=== PATIENT | female | born 1990 | race Caucasian/White ===

== ENCOUNTER → 2020-04-01 11:16 | Outpatient (CLI) | payer BC, SELFPAY ==
[2020-04-01 11:30] LABS: Absolute Lymphocyte Count 1.26 X10^3/uL (0.83-4.51); Absolute Neutrophil Count 5.3 X10^3/uL (2.0-7.7); Basophil# 0.02 X10^3/uL; Basophil% 0.3 % (0-1); Eosinophil# 0.12 X10^3/uL; Eosinophils% 1.7 % (0-5); Hematocrit 41.1 % (37-47); Hemoglobin 13.2 g/dL (12.0-15.0); Lymphocyte # 1.26 X10^3/ul (4.0); Lymphocyte % 17.8 % (19-41); Mean Corp Hgb Conc 32.1 g/dL (32-36); Mean Corpuscular Hgb 27.7 pg (27.0-32.0); Mean Corpuscular Volume 86.3 fL (81-99); Mean Platelet Vol. 10.4 fl (6.2-12.0); Monocyte# 0.39 X10^3/uL; Monocyte% 5.5 % (0-10); NRBC Flagged by Analyzer 0 % (0-5); Neutrophil # 5.25 X10^3/uL (2.7-7.7); Neutrophil % 74.4 % (47-70); Platelet Count 179 K/mm3 (150-450); RBC Distribution Width CV 13.3 % (11.6-14.6); RBC Distribution Width SD 41.5 fl (35.1-43.9); Red Blood Count 4.76 M/mm3 (4.2-5.4); White Blood Count 7.1 K/mm3 (4.4-11.0)
[2020-04-01 11:57] LABS: Glucose Challenge Gest 1H 50g 105 mg/dL (70-140)
[2020-04-01 12:42] LABS: HIV - WCH Non-Reactive (Nonreactive); Hepatitis B Surface Antigen Non-Reactive (Nonreactive); Hepatitis C Antibody Non-Reactive (Nonreactive); Rubella IgG 197.4 IU/mL
[2020-04-01 13:35] LABS: Amphetamine Urine VISTA NEGATIVE (<1000 ng/mL); Barbiturate Urine VISTA NEGATIVE (< 200 ng/mL); Benzodiazepine Urine VISTA NEGATIVE (< 200 ng/mL); Cocaine Urine VISTA NEGATIVE (< 300 ng/mL); Ecstacy Urine VISTA NEGATIVE (< 500 ng/mL); Methadone Urine VISTA NEGATIVE (< 300 ng/mL); PCP Urine VISTA NEGATIVE (< 25 ng/mL); THC Urine VISTA NEGATIVE (< 50 ng/mL); Vista UDS pH Range 7
[2020-04-02 02:04] LABS: Rapid Plasmin Reagin (RPR) NONREACTIVE (NONREACTIVE)
[2020-04-02 20:07] LABS: Chlamydia By Nucleic Acid AMP Negative (Negative)
[2020-04-02 20:44] LABS: Gonococcus By Nucleic Acid AMP Negative (Negative)
[2020-04-03 16:32] LABS: HPV Reflexed? NOT INDICATED
== END ==
PROVIDERS: Referring Provider Obstetrics & Gynecology; Visit Provider Obstetrics & Gynecology
DX: O99.210 Obesity complicating pregnancy, unspecified trimester (principal); E66.9 Obesity, unspecified; Z3A.00 Weeks of gestation of pregnancy not specified; Z12.4 Encounter for screening for malignant neoplasm of cervix
CPT/HCPCS: 36415; 80307; 82950; 85025; 86592; 86703; 86762; 86803; 86850; 86900; 86901; 87086; 87340; 87491; 87591; 88175; G0145

== ENCOUNTER → 2020-05-06 14:53 | Outpatient (CLI) | payer BC, SELFPAY ==
[2020-05-06 14:48] VITALS: BMI 31.8
== END ==
PROVIDERS: Referring Provider Obstetrics & Gynecology; Visit Provider Obstetrics & Gynecology
DX: O28.5 Abnormal chromosomal and genetic finding on antenatal screening of mother (principal); Z3A.00 Weeks of gestation of pregnancy not specified

== ENCOUNTER → 2020-07-28 15:06 | Outpatient (CLI) | payer BC, SELFPAY ==
[2020-06-30 09:57] VITALS: BMI 34.0
[2020-07-28 15:39] LABS: Absolute Lymphocyte Count 1.25 X10^3/uL (0.83-4.51); Absolute Neutrophil Count 8.2 X10^3/uL (2.0-7.7); Basophil# 0.03 X10^3/uL; Basophil% 0.3 % (0-1); Eosinophil# 0.07 X10^3/uL; Eosinophils% 0.7 % (0-5); Hematocrit 37.2 % (37-47); Hemoglobin 12.1 g/dL (12.0-15.0); Lymphocyte # 1.25 X10^3/ul (4.0); Lymphocyte % 12.5 % (19-41); Mean Corp Hgb Conc 32.5 g/dL (32-36); Mean Corpuscular Hgb 27.4 pg (27.0-32.0); Mean Corpuscular Volume 84.4 fL (81-99); Mean Platelet Vol. 10.2 fl (6.2-12.0); Monocyte# 0.38 X10^3/uL; Monocyte% 3.8 % (0-10); NRBC Flagged by Analyzer 0 % (0-5); Neutrophil # 8.24 X10^3/uL (2.7-7.7); Neutrophil % 82.3 % (47-70); Platelet Count 149 K/mm3 (150-450); RBC Distribution Width CV 14.2 % (11.6-14.6); Red Blood Count 4.41 M/mm3 (4.2-5.4)
[2020-07-28 15:50] LABS: Glucose Challenge Gest 1H 50g 129 mg/dL (70-140)
== END ==
PROVIDERS: Referring Provider Obstetrics & Gynecology; Visit Provider Obstetrics & Gynecology
DX: O09.90 Supervision of high risk pregnancy, unspecified, unspecified trimester (principal); Z13.1 Encounter for screening for diabetes mellitus; Z3A.00 Weeks of gestation of pregnancy not specified
CPT/HCPCS: 36415; 82950; 85025

== ENCOUNTER → 2020-10-12 | Outpatient (CLI) | payer BC, SELFPAY ==
[2020-10-12 16:12] VITALS: BMI 38.9
== END | disposition home or self-care (01) ==
PROVIDERS: Referring Provider Obstetrics & Gynecology; Visit Provider Obstetrics & Gynecology
DX: O09.90 Supervision of high risk pregnancy, unspecified, unspecified trimester (principal); Z3A.00 Weeks of gestation of pregnancy not specified
CPT/HCPCS: 87081

== ENCOUNTER → 2020-10-14 16:30 | Outpatient (CLI) | payer BC, SELFPAY ==
[2020-10-02 16:01] VITALS: BMI 38.3
[2020-10-12 16:12] VITALS: BMI 38.9
--- NOTE | 2020-10-14 16:32 | US_ITS ---
STUDY: SECOND AND THIRD TRIMESTER OBSTETRICAL ULTRASOUND - LIMITED REASON FOR EXAM: Female, 30 years old growth LMP: 02/02/2020 PRIOR ULTRASOUND: None. TECHNIQUE: Transabdominal TECHNICAL QUALITY: Adequate. FINDINGS: There is a single intrauterine fetus. The fetus is in a cephalic presentation. There is demonstrated cardiac activity with a heart rate of 150 bpm. There is a normal amniotic fluid volume. The largest amniotic fluid pocket measures 4.7 cm. The amniotic fluid index (JASKARAN) is 16.2 cm. The placenta is posterior in location and is not low lying. There are Grade 1 placental changes. The cervix measures cm in length. BIOMETRY: BPD: 8.7 cm: 35 weeks, 1 days HC: 32.2 cm: 36 weeks, 3 days AC: 32.2 cm: 36 weeks, 2 days FL: 7.2 cm: 37 weeks, 0 days Age by LMP: 36 weeks, 3 days. RADAMES by LMP: 11/08/2020. age by current US: 36 weeks, 2 days. RADAMES by current US: 11/09/2020. Estimated weight: 2900 grams, +/- 423 grams, 49 percentile. Gender: US/OB Limited With Biometrics IMPRESSION: Living intrauterine of 36 weeks 2 days as described above. Electronically Signed: Yuniel Cruz MD at 9:14 EDT Tel , Service support ,
== END ==
PROVIDERS: Referring Provider Obstetrics & Gynecology; Visit Provider Obstetrics & Gynecology
DX: O09.90 Supervision of high risk pregnancy, unspecified, unspecified trimester (principal); Z3A.00 Weeks of gestation of pregnancy not specified
CPT/HCPCS: 76816

== ENCOUNTER → 2020-10-26 16:06 | Outpatient (CLI) | payer BC, SELFPAY ==
[2020-10-02 16:01] VITALS: BMI 38.3
[2020-10-19 16:27] VITALS: BMI 39.3
== END ==
PROVIDERS: Visit Provider Obstetrics & Gynecology
DX: Z34.90 Encounter for supervision of normal pregnancy, unspecified, unspecified trimester (principal)
CPT/HCPCS: 87635; C9803; U0002

== ENCOUNTER 2020-11-02 19:00 | Inpatient (IN) | payer BC, SELFPAY ==
[2020-10-26 16:07] VITALS: BMI 39.2
[2020-11-02 19:44] VITALS: BMI 40.0
[2020-11-02 19:49] VITALS: TEMP 36.6
[2020-11-02 19:50] VITALS: PULSE 103; O2SAT 95
[2020-11-02 19:54] VITALS: BP 113/70; PULSE 100
[2020-11-02] MEDS: 0.9% Saline Lock 10 ML Syringe IV (20:00)
[2020-11-02 20:18] LABS: Absolute Lymphocyte Count 1.16 X10^3/uL (0.83-4.51); Absolute Neutrophil Count 6.9 X10^3/uL (2.0-7.7); Basophil# 0.01 X10^3/uL; Basophil% 0.1 % (0-1); Eosinophil# 0.07 X10^3/uL; Eosinophils% 0.8 % (0-5); Hematocrit 34.8 % (37-47); Hemoglobin 10.7 g/dL (12.0-15.0); Lymphocyte # 1.16 X10^3/ul (0.83-4.51); Lymphocyte % 13.2 % (19-41); Mean Corp Hgb Conc 30.7 g/dL (32-36); Mean Corpuscular Hgb 24.8 pg (27.0-32.0); Mean Corpuscular Volume 80.6 fL (81-99); Monocyte# 0.58 X10^3/uL; Monocyte% 6.6 % (0-10); NRBC Flagged by Analyzer 0 % (0-5); Neutrophil % 78.8 % (47-70); Platelet Count 166 K/mm3 (150-450); RBC Distribution Width CV 15.6 % (11.6-14.6); RBC Distribution Width SD 45.2 fl (35.1-43.9); Red Blood Count 4.32 M/mm3 (4.2-5.4); White Blood Count 8.8 K/mm3 (4.4-11.0)
--- NOTE | 2020-11-02 20:50 | PCM.HP.OB ---
HPI - General General Date of Admission: 11/02/20 HPI Narrative BERNABE DEMARCO, is a 30 F at 39 weeks who presents for induction of labor for complex cardiac anomalies [facility] Medical History (Updated 11/02/20 @ 20:[address] 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 History 3 Elective abortions Hx Para 1 Spontaneous abortions Hx # Term Pregnancies Ectopic pregnancies Hx # Pregnancies Multiple births # of living children 1 NST FHR Rate Baby A Baseline: declines heart tones ROS Eyes Eyes: Reports systems reviewed and no addt'l complaints, except as documented ENT HEENT: Reports systems reviewed and no addt'l complaints, except as documented Cardiovascular Cardiovascular: Reports systems reviewed and no addt'l complaints, except as documented Respiratory/Chest Respiratory/Chest: Reports systems reviewed and no addt'l complaints, except as documented Gastrointestinal Gastrointestinal: Reports systems reviewed and no addt'l complaints, except as documented Genitourinary Genitourinary: Reports systems reviewed and no addt'l complaints, except as documented Musculoskeletal Musculoskeletal: Reports systems reviewed and no addt'l complaints, except as documented Integumentary Integumentary: Reports systems reviewed and no addt'l complaints, except as documented Neurologic Neurologic: Reports systems reviewed and no addt'l complaints, except as documented Psychiatric Psychiatric: Reports systems reviewed and no addt'l complaints, except as documented Endocrine Endocrinology: Reports systems reviewed and no addt'l complaints, except as documented Hematologic/Lymphatic Hematologic/Lymphatic: Reports systems reviewed and no addt'l complaints, except as documented Allergic/Immunologic Allergic/Immunologic: Reports systems reviewed and no addt'l complaints, except as documented Vital Signs Vital Signs Vital Signs: 11/02/20 19:49 11/02/20 19:50 11/02/20 19:54 Temperature 97.8 F Temperature Source Temporal Pulse Rate 103 H 100 Blood Pressure 113/70 BP Systolic 113 BP Diastolic 70 Pulse Ox 95 Physical Exam Const alert, oriented x3, no apparent distress, average body habitus, healthy appearing and well nourished HEENT normocephalic and moist oral mucous membranes Head and Scalp: atraumatic Eyes PERRL and EOMs intact bilaterally Neck full ROM Resp normal respiratory effort, no retractions and no use of accessory muscles Cardio regular rate and regular rhythm GI soft to palpation, non-tender and non-distended OB / External & Speculum: external exam normal; Negative for bleeding Manual OB Exam: estimated gestational size appropriate, presentation cephalic, dilated 1, effaced 50 and station -3 Uterus Palpation: Negative for uterus tender Extremity normal to inspection and full ROM Skin no rashes or lesions noted Neuro no focal motor deficits and no sensory deficits noted Psych mental status grossly normal, affect normal, speech normal and activity/motor behavior normal Assessment & Plan Assessment/Plan (1) Encounter for induction of labor: Status: Acute Code(s): Z34.90 - Encounter for supervision of normal , unspecified, unspecified trimester Plan: IOL at 39w Patient presents IOL, plan management for with Cytotec. Pain management: Plans epidural. GBS .negative Management of any complications: Palliative care only - plan reviewed with patient and nursing Heart tones at patient request I have reviewed the [facility] and made any clinically relevant updates. Labor Preferences-PALLIATIVE CARE ONLY FOR BABY labor support person: Moose labor intervention preferences: plan epidural in labor. Goal of care is as much quality time with baby as possible. Worried about not being able to push due to emotions. Comfort care for baby after delivery pain management options preferred: likely epidural Goals after delivery: Pictures with her daughter and baby. Wants baby immediately on her. Wants hand and footprints. cut cord/dad catch: maybe cord, not deliver, patient may help deliver : yes (2) : Status: Acute Code(s): Z34.90 - Encounter for supervision of normal , unspecified, unspecified trimester Qualifiers: Weeks of gestation: 38 weeks Qualified Code(s): Z3A.38 - 38 weeks gestation of (3) Hx of maternal laceration, 4th degree, currently : Status: Acute Code(s): O09.299 - Supervision of with other poor reproductive or obstetric history, unspecified trimester Plan: Had fast labor and felt was very tense during delivery. No lasting pain or incontinence. Baby suspected to be significantly smaller. Offered PCD vs. IOL and elected for vaginal delivery (4) Supervision of high risk , antepartum: Status: Acute Code(s): O09.90 - Supervision of high risk , unspecified, unspecified trimester Plan: PRR RADAMES 11/08/20 Girl! 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 Lethal anomalies. Plan palliative care only with delivery at [facility]. Meetings held between OB, nursing, and pediatrics leadership with input from [facility] to coordinate care plan. Separate plan distributed to care team.
[2020-11-02] MEDS: miSOPROStol 25 MCG TABLET PO (21:29)
[2020-11-02 21:47] VITALS: BP 109/77; PULSE 100; TEMP 36.7; O2SAT 96; O2SAT 97
[2020-11-03] VITALS (40 sets, daily range): BP systolic 97–132; BP diastolic 53–94; PULSE 79–155; RESP 18; TEMP 36.1–36.4; O2SAT 96–98
[2020-11-03] MEDS: miSOPROStol 25 MCG TABLET 50 MCG PO (01:33)
[2020-11-03] MEDS: Oxytocin 30 units/NS 500 ml 30 UNITS/500 ML IV.SOLN IV (09:14)
[2020-11-03] MEDS: Lactated Ringers 1,000 ML 50 ML IV (09:15)
[2020-11-03] MEDS: Lactated Ringers 500 ML 999 ML IV ×2 (10:01→11:13)
[2020-11-03] MEDS: Oxytocin 30 units/NS 500 ml 30 UNITS/500 ML IV.SOLN 334 UNITS IV (13:50)
--- NOTE | 2020-11-03 14:09 | EX.PCM.OBRPT ---
Problems Associated Problem List Diagnoses (1) Encounter for induction of labor: (2) : (3) Hx of maternal laceration, 4th degree, currently : (4) Supervision of high risk , antepartum: (5) COVID-19 affecting in second trimester: (6) Heterotaxy syndrome: (7) Complex congenital heart defect: Report of Operation (OB) Information RADAMES Calculator Estimated Delivery Date Method Current WG Current Estimate 11/08/20 LMP (Certain) 39w 2d Other Estimates 11/05/20 Ultrasound #1 39w 5d Induction Maternal Presentation: Medically Indicated Induction Maternal Presentation: 30-year-old G3, P1 at 39 weeks admitted for induction of labor for complex cardiac anomaly not compatible with life. Type of Induction: Pitocin, Amniotomy and Cytotec Medical Reason for Induction: Compromise: list: (Complex cardiac anomaly not compatible with life) Findings Description of Procedure: Patient began pushing and delivered the head in the MICHAEL presentation. The head was delivered atraumatically and no nuchal cord was noted. The anterior and posterior shoulders delivered without complication followed by the rest of the and the infant was placed on the maternal abdomen. Delayed cord clamping was employed for approximately 60 seconds. Cord was clamped and cut and gentle traction was applied to the cord and the placenta delivered spontaneously immediately following it was noted to be intact with three-vessel cord. The perineum and vagina were inspected and a midline second-degree perineal laceration was noted and repaired in the standard fashion using 3-0 Vicryl rapide suture. EBL was 200 cc. Patient and infant tolerated delivery well. Procedure Performed: Spontaneous Vaginal Delivery Presentation: Positive for Vertex and MICHAEL Amniotic Membrane Rupture Type: Artificial Amniotic Fluid Description: Clear Placental Delivery Description: Spontaneous Placenta Disposition: Sent to Pathology Cord Vessel Description: 3 Vessels Cord Entanglement: None Infant Gender: Female Delayed Cord Clamping: No Drain: Patten to straight drain Esitmated Blood Loss (mL): 200 Medications Given Medications Given After Delivery: IV Pitocin Post Vaginal Delivery Episiotomy Description: None Laceration: Midline, Perineal Extension/lac and 2nd degree Complications Complications: None Multi Select Codes Urinary/Genital Urinary/Genital CPT Codes: 70682 Vaginal Delivery [facility]
[2020-11-03] MEDS: 0.9% Saline Lock 10 ML Syringe IV (17:24)
[2020-11-03] MEDS: Naproxen 250 MG Tablet 500 MG PO (17:24)
[2020-11-04 02:06] VITALS: BP 101/57; PULSE 87; RESP 16; TEMP 35.9
[2020-11-04] MEDS: Naproxen 250 MG Tablet 500 MG PO (04:06)
[2020-11-04] MEDS: Acetaminophen 500 MG Tablet 1000 MG PO (06:52)
[2020-11-04 06:55] VITALS: BP 115/76; PULSE 99; RESP 16; TEMP 37
[2020-11-04 08:03] VITALS: BP 107/66; PULSE 90; RESP 18; TEMP 36.2
--- NOTE | 2020-11-04 08:40 | PN.OBGYN_ITS ---
Subjective Subjective: Patient doing well without complaints. Tolerating PO. Ambulating and voiding without difficulty. Breast and bottle feeding well. Denies chest pain, shortness of breath, calf pain/swelling, fevers, chills, lightheadedness. Objective Data Objective Data Vital Signs: Vital Signs Temp Pulse Resp BP Pulse Ox 97.2 F L 90 18 107/66 97 11/04/20 08:03 11/04/20 08:03 11/04/20 08:03 11/04/20 08:03 11/03/20 19:57 Oxygen Delivery Method Room Air Weight: 279 lb 3.2 oz Body Mass Index (BMI) 40.0 Intake & Output: Intake and Output for Last 24 Hours 11/02/20 11/03/20 11/04/20 23:59 23:59 23:59 Intake Total 2667.29 / 2667.29 Output Total 850 / 850 Balance 1817.29 / 1817.29 Lab / Micro Data Result Diagrams: 11/02/20 20:00 Physical Exam Const alert, oriented x3, no apparent distress, average body habitus, healthy appearing and well nourished HEENT normocephalic Head and Scalp: atraumatic Eyes PERRL and EOMs intact bilaterally Neck full ROM Lymph Lymphatic: no lymphadenopathy noted Resp normal respiratory effort, no retractions and no use of accessory muscles Cardio regular rate GI soft to palpation, non-tender and non-distended Palpation: other Other Details: fundus firm Extremity normal to inspection and no clubbing, cyanosis or edema Skin no rashes or lesions noted Neuro no focal motor deficits and no sensory deficits noted Psych mental status grossly normal, affect normal and speech normal Assessment & Plan Assessment/Plan (1) (spontaneous vaginal delivery): Status: Acute Code(s): O80 - Encounter for full-term uncomplicated delivery Plan: s/p PPD # 1 1. routine post delivery care 2. breast and bottle feeding 3. rh positive 4. rubella immune 5. heterotaxy syndrome - baby doing much better than originally expected, will check O2 sats and have peds evaluate this am. If maintaining sats, will consider transport to [facility]
[2020-11-04 12:01] VITALS: BP 115/77; PULSE 87; RESP 18; TEMP 35.9
--- NOTE | 2020-11-04 13:17 | CASEMGMT ---
Addendum entered by Vernell Mejia 11/04/20 13:58: SW received a call back from Patricia Pina at [facility], she reviewed w/this SW the services and supports they offer, and they will be in touch w/the family after discharge. She also states that they can make jewelry from the ink prints of the baby if the family is interested, gave SW her fax number to fax the ink prints if the family is interested. SW spoke w/MOB again, reviewed the services and supports offered, and asked about the ink prints, if she would like SW to fax them over for jewelry to be made, she states she would. SW made copies and faxed the inkprints to Patricia, gave the originals back to parents. SW will continue to remain available for family as needed. ULISSES Andujar Original Note: Social Work Labor and Delivery Unit Referral Date/Time: 11/04/20, 8:55am Referred by: Dr. Maritza MD Intervention Date/Time: 11/04/20, 1pm Reason for Referral: Grief/Loss/Bereavement, baby w/lethal anomolies. Also PHQ-9 of 15 SW met w/MOB and FOB in room, MOB tearful, holding baby. SW spoke w/them about the situation, offered support. FOB expressed concern for MOB, as she had depression after the of their daughter who is now 3. He is also concerned about anxiety for MOB. SW asked MOB about suicidality, MOB denies. She states she is in counseling, it's online and she likes her counselor, has been working w/her for about one month. She does not have an appointment scheduled at this time, she is to call the counselor once they get home to set up the next appt. ZAIDA is not on medication at this time. She states was on meds for about one month after the of her daughter, but when the prescription ran out she did not reach out to continue the medication. She does not have a PCP at this time. They are also involved with [facility], they are on aware if there is any supports available through this agency. SW offered to call to find out, they are in agreement with this. SW asked about support, both report supportive extended families. MOB reports that their 3 year old is bouncing between 3 grandparents while they are here. We spoke about the possibility of getting back on medication, MOB seems open to this. BENNY encouraged MOB to speak w/her OVERLAY PLASTICIAN about this, she states understanding. BENNY also suggested she get established with a PCP. MOB open to SW giving her a list of PCPs in [place], SW explained will print a list off of her insurance website. BENNY printed a list of PCPs for MOB. BENNY also called [facility] informed Patricia Pina does report support groups and has bereavement services she can offer. The family would just need to call the number for palliative and ask for Patricia. This SW also left Patricia a message requesting any resources SW may be able to pass on to family today. BENNY offered to call MOB's counselor or to set up an appt, MOB declined, states will do herself. BENNY gave MOB list of PCPs and number to [facility], with Patricia's number, encouraged her to call. BENNY let FOB and MOB that SW will be here should they need anything else or any additional support. BENNY remains available for any supportive needs. ULISSES Andujar
--- NOTE | 2020-11-04 13:26 | NURSING ---
RN offering continual emotional support to patient and . pt declines wanting to see hospital pot filler.
[2020-11-04 15:33] VITALS: BP 129/86; PULSE 99; RESP 18; TEMP 36
[2020-11-04 21:16] VITALS: BP 124/86; PULSE 92; RESP 18; TEMP 36.2
[2020-11-04] MEDS: Sertraline 50 MG Tablet PO (21:18)
[2020-11-05 01:58] VITALS: BP 116/72; PULSE 88; RESP 16; TEMP 36.2
--- NOTE | 2020-11-05 08:35 | DCINST_ITS ---
Discharge Instructions Diet Discharge Diet: No restrictions Activity Discharge Activity: May Drive and May Shower May resume sexual activity in: 4-6 weeks Dressing / Incision Call your doctor if your incision/area has: Continuous Slow Oozing, Sudden Increased Bleeding, Increased Pain/ Swelling, Increased Redness and Foul Smelling Discharge Call your doctor if you observe: Fever of 101 or Higher, Inability to urinate, Inability to have a bowel movement, Using more than one pad per hour, Shortness of breath, Dizziness, Fainting spells, Swelling in the ankles, Chest pain, Incr eased palpitations (irregular heartbeat), Calf discomfort and Uncontrolled pain Discharge Plan Admission Admit Date/Time: 11/02/20 19:00 Primary Reason for Your Visit: Induction of labor Attending Provider: Glo Salas Primary Care Provider: Care Physician,Lakisha Primary Instructions Patient Instructions: After a Vaginal Additional Instructions / Restrictions: Schedule visit in 6 weeks Discharge Orders/Prescriptions Referrals / Follow Up: Care Physician,No Primary [Primary Care Provider] - Disposition Disposition (needs filled in before D/C Order can be placed): Home, self care
--- NOTE | 2020-11-05 08:42 | PCM.PN.OB ---
Subjective Subjective: Patient doing well without complaints. Tolerating PO. Ambulating and voiding without difficulty. Baby did not do well overnight. Patient reports that she is feeling well, but having a difficult time emotionally Objective Data Objective Data Vital Signs: Vital Signs Temp Pulse Resp BP Pulse Ox 97.2 F L 88 16 116/72 97 11/05/20 01:58 11/05/20 01:58 11/05/20 01:58 11/05/20 01:58 11/03/20 19:57 Oxygen Delivery Method Room Air Weight: 279 lb 3.2 oz Body Mass Index (BMI) 40.0 Intake & Output: Intake and Output for Last 24 Hours 11/03/20 11/04/20 11/05/20 23:59 23:59 23:59 Intake Total 2667.29 / 2667.29 Output Total 850 / 850 Balance 1817.29 / 1817.29 Lab / Micro Data Result Diagrams: 11/02/20 20:00 Physical Exam Const alert, oriented x3, no apparent distress, average body habitus, healthy appearing and well nourished HEENT normocephalic Head and Scalp: atraumatic Eyes PERRL and EOMs intact bilaterally Neck full ROM Lymph Lymphatic: no lymphadenopathy noted Resp normal respiratory effort, no retractions and no use of accessory muscles Cardio regular rate GI soft to palpation, non-tender and non-distended Palpation: other Other Details: fundus firm Extremity normal to inspection and no clubbing, cyanosis or edema Skin no rashes or lesions noted Neuro no focal motor deficits and no sensory deficits noted Psych mental status grossly normal, affect normal and speech normal Assessment & Plan (1) (spontaneous vaginal delivery): PLAN: s/p PPD # 2 1. routine post delivery care 2. breast feeding- support given 3. rh positive 4. rubella immune
[2020-11-05 09:28] VITALS: BP 109/69; PULSE 95; RESP 14; TEMP 36.4; O2SAT 97
--- NOTE | 2020-11-05 09:51 | NURSING ---
Patient wishes for minimum interruptions from staff. Wishes to be hotel status at this time. Landscape Crew Member and social work notified of patient's wishes. Ariana Betancourt from social work notified that patient has appropriate emotional responses to her circumstances. Is responsive to questions from staff. Spouse at her side for emotional support. Ariana is comfortable with waiting to talk to the patient after the anticipated passing of her .
--- NOTE | 2020-11-05 16:26 | NURSING ---
Infant passed at approximately 1350. Parents given emotional support. They requested to bathe the and were provided materials to do so. [employer] collected with help of this RN. Patient and spouse were tearful but appropriate. They wished to go home as soon as possible. Social work not on unit at the time. Was left a message to notify her that patient desires a phone call from social media assistant as she would like to go home. Patient walked out at discharge around 1535 accompanied by her spouse and this RN.
== END 2020-11-05 10:16 | disposition home or self-care (01) | DRG 807 ==
PROVIDERS: Admitting Provider Obstetrics & Gynecology; Visit Provider Obstetrics & Gynecology
DX: O66.3 Obstructed labor due to other abnormalities of fetus (principal); O35.8XX0 Maternal care for other (suspected) fetal abnormality and damage, not applicable or unspecified; Z37.0 Single live birth; Z3A.39 39 weeks gestation of pregnancy; Z86.16 Personal history of COVID-19; O70.1 Second degree perineal laceration during delivery
CPT/HCPCS: 59025; 59050; 85025; 86850; 86900; 86901; 99218; J7120; A4216; G0378

== ENCOUNTER → 2021-06-01 16:44 | Outpatient (CLI) | payer OTHER, SELFPAY ==
[2021-06-01 17:45] LABS: hCG Titer Quant., Serum < 1 mIU/mL (1-3)
== END ==
PROVIDERS: Visit Provider Obstetrics & Gynecology
DX: N91.2 Amenorrhea, unspecified (principal)
CPT/HCPCS: 36415; 84702

== ENCOUNTER → 2021-06-16 07:17 | Outpatient (CLI) | payer OTHER, SELFPAY ==
[2021-06-16 08:31] LABS: hCG Titer Quant., Serum 161 mIU/mL (1-3)
== END ==
PROVIDERS: Referring Provider Obstetrics & Gynecology; Visit Provider Obstetrics & Gynecology
DX: Z34.90 Encounter for supervision of normal pregnancy, unspecified, unspecified trimester (principal)
CPT/HCPCS: 36415; 84702

== ENCOUNTER → 2021-06-18 06:42 | Outpatient (CLI) | payer OTHER, SELFPAY ==
[2021-06-18 08:40] LABS: hCG Titer Quant., Serum 389 mIU/mL (1-3)
== END ==
PROVIDERS: Referring Provider Nurse Practitioner Women's Health; Visit Provider Nurse Practitioner Women's Health
DX: N91.2 Amenorrhea, unspecified (principal)
CPT/HCPCS: 36415; 84702

== ENCOUNTER 2021-07-05 16:20 | Outpatient (CLI) | payer OTHER, SELFPAY ==
--- NOTE | 2021-07-05 16:23 | US_ITS ---
STUDY: FIRST TRIMESTER OBSTETRICAL ULTRASOUND REASON FOR EXAM: Female, 30 years old positive test, size and dates LMP: Unknown. TECHNIQUE: Transvaginal TECHNICAL QUALITY: Adequate. PRIOR ULTRASOUND: None. FINDINGS: There is visualization of a single gestational sac in a normal intrauterine position. The mean sac diameter (MSD) measures 2.2 cm, indicating an estimated gestational age (EGA) of 7 weeks, 0 days. The gestational sac shape is within normal limits. There is a visualized yolk sac. The yolk sac measures 0.5 cm. The placenta is non-visualized. There is visualization of a live embryo. The crown-rump length (CRL) measures 1.02 cm, indicating an estimated gestational age (EGA) of 7 weeks, 1 days. There is demonstrated cardiac activity with a heart rate of 138 bpm. The estimated gestation age (EGA) by US is 7 weeks, 1 days. The estimated date of delivery (RADAMES) by US is 02/21/2022. The uterus measures 8.8 x 7.2 x 5.4 cm. There is no demonstrated uterine fibroid. The cervix is closed. The right ovary measures 3.2 x 2.0 x 1.0 cm. There is no right ovarian cyst. There is no visualized right adnexal mass or complex lesion. The left ovary measures 3.1 x 1.9 x 2.1 cm. There is a simple 2.0 cm cyst There is no fluid in the cul de sac. US/Transvaginal w/Preg US IMPRESSION: Single live intrauterine at 7 weeks, 1 day by current ultrasound with RADAMES of 02/21/2022. Heart rate of 130 bpm. No suspicious sonographic findings Electronically Signed: Jeremiah Graham MD at 19:28 EST , Service support ,
== END 2021-07-05 23:59 | disposition short-term general hospital (02) ==
LOC: US 16:22
PROVIDERS: Referring Provider Obstetrics & Gynecology; Visit Provider Obstetrics & Gynecology
DX: Z34.90 Encounter for supervision of normal pregnancy, unspecified, unspecified trimester (principal)
CPT/HCPCS: 76817

== ENCOUNTER 2021-07-22 17:16 | Outpatient (CLI) | payer OTHER, SELFPAY ==
[2021-07-22 17:44] LABS: Amphetamine Urine VISTA NEGATIVE (<1000 ng/mL); Barbiturate Urine VISTA NEGATIVE (< 200 ng/mL); Benzodiazepine Urine VISTA NEGATIVE (< 200 ng/mL); Cocaine Urine VISTA NEGATIVE (< 300 ng/mL); Ecstacy Urine VISTA NEGATIVE (< 500 ng/mL); Methadone Urine VISTA NEGATIVE (< 300 ng/mL); PCP Urine VISTA NEGATIVE (< 25 ng/mL); THC Urine VISTA NEGATIVE (< 50 ng/mL); Vista UDS pH Range 6
[2021-07-26 21:07] LABS: Chlamydia By Nucleic Acid AMP Negative (Negative)
[2021-07-26 21:11] LABS: Gonococcus By Nucleic Acid AMP Negative (Negative)
== END 2021-07-22 23:59 | disposition short-term general hospital (02) ==
PROVIDERS: Visit Provider Obstetrics & Gynecology
DX: O09.90 Supervision of high risk pregnancy, unspecified, unspecified trimester (principal); Z3A.00 Weeks of gestation of pregnancy not specified
CPT/HCPCS: 80307; 87086; 87088; 87491; 87591

== ENCOUNTER 2021-08-04 07:01 | Outpatient (CLI) | payer OTHER, SELFPAY ==
[2021-08-04 07:21] LABS: Absolute Lymphocyte Count 1.02 X10^3/uL (0.83-4.51); Basophil# 0.02 X10^3/uL; Basophil% 0.4 % (0-1); Eosinophil# 0.07 X10^3/uL; Eosinophils% 1.3 % (0-5); Hemoglobin 12.7 g/dL (12.0-15.0); Lymphocyte # 1.02 X10^3/ul (0.83-4.51); Lymphocyte % 19.2 % (19-41); Mean Corp Hgb Conc 32.6 g/dL (32-36); Mean Corpuscular Volume 79.9 fL (81-99); Mean Platelet Vol. 10.3 fl (6.2-12.0); Monocyte# 0.25 X10^3/uL; Monocyte% 4.7 % (0-10); NRBC Flagged by Analyzer 0 % (0-5); Neutrophil # 3.95 X10^3/uL (2.7-7.7); Neutrophil % 74.2 % (47-70); Platelet Count 169 K/mm3 (150-450); RBC Distribution Width CV 14.6 % (11.6-14.6); RBC Distribution Width SD 42.3 fl (35.1-43.9); Red Blood Count 4.88 M/mm3 (4.2-5.4); White Blood Count 5.3 K/mm3 (4.4-11.0)
[2021-08-04 07:42] LABS: Glucose Challenge Gest 1H 50g 144 mg/dL (70-140)
[2021-08-04 08:07] LABS: NATERA MAILED SPECIMEN
[2021-08-04 09:09] LABS: HIV - WCH Non-Reactive (Nonreactive); Hepatitis B Surface Antigen Non-Reactive (Nonreactive); Hepatitis C Antibody Non-Reactive (Nonreactive); Rubella IgG Reactive (Nonreactive); Syphilis Antibodies Non-reactive
== END 2021-08-04 23:59 | disposition short-term general hospital (02) ==
PROVIDERS: Referring Provider Obstetrics & Gynecology; Visit Provider Obstetrics & Gynecology
DX: O09.91 Supervision of high risk pregnancy, unspecified, first trimester (principal); O99.211 Obesity complicating pregnancy, first trimester
CPT/HCPCS: 36415; 82950; 85025; 86703; 86762; 86780; 86803; 86850; 86900; 86901; 87340

== ENCOUNTER 2021-08-31 15:45 | Outpatient (CLI) | payer OTHER, SELFPAY ==
[2021-08-31 16:23] LABS: ALB/GLOB Ratio 0.7 RATIO (0.9-2.4); AST(SGOT) 16 U/L (15-37); Alanine Aminotransfer ALT/SGPT 15 U/L (13-56); Albumin, Serum 3.2 g/dL (3.2-5.0); Alkaline Phosphatase 98 U/L (45-117); Anion Gap 5 (5-15); BUN 5 mg/dL (7-18); BUN/Creat Ratio 6.7 RATIO (10-20); Calcium,Total 9.1 mg/dL (8.5-10.1); Chloride 108 mmol/L (98-107); Creatinine, Serum 0.75 mg/dL (0.55-1.02); EST Glomerular Filtration Rate 97 mL/min (>60); Est Glom Filt Rate - Afr Amer 117 mL/min (>60); Globulin 4.3 g/dL (2.2-4.2); Glucose 88 mg/dL (74-106); Lipase 77 U/L (73-393); Potassium 3.5 mmol/L (3.5-5.1); Protein, Total 7.5 g/dL (6.4-8.2); Sodium Level 137 mmol/L (136-145)
[2021-08-31 16:27] LABS: Absolute Lymphocyte Count 1.24 X10^3/uL (0.83-4.51); Absolute Neutrophil Count 4.3 X10^3/uL (2.0-7.7); Basophil# 0.03 X10^3/uL; Basophil% 0.5 % (0-1); Eosinophil# 0.07 X10^3/uL; Eosinophils% 1.2 % (0-5); Hematocrit 41.6 % (37-47); Hemoglobin 13.6 g/dL (12.0-15.0); Lymphocyte # 1.24 X10^3/ul (0.83-4.51); Lymphocyte % 20.6 % (19-41); Mean Corp Hgb Conc 32.7 g/dL (32-36); Mean Corpuscular Volume 79.5 fL (81-99); Mean Platelet Vol. 10.7 fl (6.2-12.0); Monocyte# 0.35 X10^3/uL; Monocyte% 5.8 % (0-10); NRBC Flagged by Analyzer 0 % (0-5); Neutrophil % 71.4 % (47-70); Platelet Count 192 K/mm3 (150-450); RBC Distribution Width CV 15.1 % (11.6-14.6); RBC Distribution Width SD 43.1 fl (35.1-43.9); Red Blood Count 5.23 M/mm3 (4.2-5.4)
== END 2021-08-31 23:59 | disposition home or self-care (01) ==
LOC: PAVLAB 15:46
PROVIDERS: Referring Provider Obstetrics & Gynecology; Visit Provider Obstetrics & Gynecology
DX: O26.899 Other specified pregnancy related conditions, unspecified trimester (principal); R10.9 Unspecified abdominal pain; Z3A.00 Weeks of gestation of pregnancy not specified
CPT/HCPCS: 36415; 80053; 83690; 85025; 87086; 87088

== ENCOUNTER 2021-09-22 16:45 | Outpatient (CLI) | payer OTHER, SELFPAY | END 2021-09-22 23:59 | disposition home or self-care (01) | LOC: LABSPEC 16:46 | PROVIDERS: Referring Provider Nurse Practitioner Women's Health; Visit Provider Nurse Practitioner Women's Health | DX: Z34.92 Encounter for supervision of normal pregnancy, unspecified, second trimester (principal) | CPT/HCPCS: 87086; 87088 ==

== ENCOUNTER 2021-10-14 09:58 | Outpatient (CLI) | payer OTHER, SELFPAY ==
[2021-10-14 10:39] LABS: Glucose GTT-Gestation. Fasting 85 mg/dL (<105)
[2021-10-14 11:33] LABS: Glucose GTT-Gestational 1 Hr 136 mg/dL (<190)
[2021-10-14 12:37] LABS: Glucose GTT-Gestational 2 Hr 112 mg/dL (<165)
[2021-10-14 13:55] LABS: Glucose GTT-Gestational 3 Hr 106 L (<145)
== END 2021-10-14 23:59 | disposition home or self-care (01) ==
LOC: LAB 09:59
PROVIDERS: Referring Provider Nurse Practitioner Women's Health; Visit Provider Nurse Practitioner Women's Health
DX: Z13.1 Encounter for screening for diabetes mellitus (principal)
CPT/HCPCS: 36415; 82951; 82952

== ENCOUNTER → 2021-12-01 | Outpatient (CLI) | payer OTHER, SELFPAY ==
[2021-12-01 15:00] LABS: Absolute Lymphocyte Count 1.18 X10^3/uL (0.83-4.51); Absolute Neutrophil Count 7.6 X10^3/uL (2.0-7.7); Basophil# 0.02 X10^3/uL; Basophil% 0.2 % (0-1); Eosinophil# 0.07 X10^3/uL; Eosinophils% 0.8 % (0-5); Hemoglobin 11.5 g/dL (12.0-15.0); Lymphocyte # 1.18 X10^3/ul (0.83-4.51); Lymphocyte % 12.7 % (19-41); Mean Corp Hgb Conc 31.9 g/dL (32-36); Mean Corpuscular Hgb 26.4 pg (27.0-32.0); Mean Corpuscular Volume 82.6 fL (81-99); Mean Platelet Vol. 10.1 fl (6.2-12.0); Monocyte# 0.35 X10^3/uL; Monocyte% 3.8 % (0-10); NRBC Flagged by Analyzer 0 % (0-5); Neutrophil # 7.59 X10^3/uL (2.7-7.7); Platelet Count 151 K/mm3 (150-450); RBC Distribution Width CV 15.8 % (11.6-14.6); RBC Distribution Width SD 47.2 fl (35.1-43.9); Red Blood Count 4.36 M/mm3 (4.2-5.4); White Blood Count 9.3 K/mm3 (4.4-11.0)
[2021-12-01 15:50] LABS: Glucose Challenge Gest 1H 50g 132 mg/dL (70-140)
== END | disposition home or self-care (01) ==
LOC: PAVLAB 14:45
PROVIDERS: Referring Provider Obstetrics & Gynecology; Visit Provider Obstetrics & Gynecology
DX: O09.90 Supervision of high risk pregnancy, unspecified, unspecified trimester (principal); Z3A.00 Weeks of gestation of pregnancy not specified
CPT/HCPCS: 36415; 82950; 85025

== ENCOUNTER 2022-01-23 23:35 | Outpatient (CLI) | payer OTHER, SELFPAY ==
[2022-01-23 23:48] VITALS: BP 126/89; PULSE 88; TEMP 36.8
[2022-01-23 23:52] VITALS: BMI 41.7
--- NOTE | 2022-01-27 18:31 | OB.TRI.PN ---
Progress Notes Progress Note: Patient presents for triage evaluation secondary to decreased movement FHT: 140 Moderate variability reactive no decelerations category I tracing Kohler: no regular Contractions Assessment and plan: dec movement Reactive NST, reassuring maternal and status patient discharged to home to follow-up as scheduled. See problem list details for additional plan information. Charges/Coding Procedures Urinary/Genital 52xxx-59xxx: 06826-83 non-stress test Interp
== END 2022-01-24 00:25 | disposition home or self-care (01) ==
LOC: WPOUT 23:41 → WP 23:42
PROVIDERS: Visit Provider Obstetrics & Gynecology
DX: O36.8190 Decreased fetal movements, unspecified trimester, not applicable or unspecified (principal); Z3A.00 Weeks of gestation of pregnancy not specified
CPT/HCPCS: 59025; 59050; 99218; G0378

== ENCOUNTER → 2022-01-25 | Outpatient (CLI) | payer OTHER, SELFPAY ==
--- NOTE | 2022-01-25 12:24 | US_ITS ---
STUDY: SECOND AND THIRD TRIMESTER OBSTETRICAL ULTRASOUND - LIMITED REASON FOR EXAM: Female, 31 years old growth -- 36 weeks LMP: 05/17/2021. PRIOR ULTRASOUND: Comparison is made with prior study dated 07/05/2021. TECHNIQUE: Transabdominal TECHNICAL QUALITY: Adequate. FINDINGS: There is a single intrauterine fetus. The fetus is in a cephalic presentation. There is demonstrated cardiac activity with a heart rate of 131 bpm. There is a normal amniotic fluid volume. The largest amniotic fluid pocket measures 7.7 cm x 7.1 cm. The amniotic fluid index (JASKARAN) is 25.5 cm. The placenta is posterior in location and is not low lying. There are Grade 1 placental changes. The cervix was not measured. The patient did not fill the bladder. BIOMETRY: BPD: 9.38 cm: 38 weeks, 1 days HC: 33.9 cm: 38 weeks, 6 days AC: 35.48 cm: 39 weeks, 2 days FL: 7.11 cm: 37 weeks, 2 days Age by LMP: 36 weeks, 1 days. RADAMES by LMP: 02/21/2022. age by prior US: 36 weeks, 1 days. RADAMES by prior US: 02/21/2022. age by current US: 38 weeks, 0 days. RADAMES by current US: 02/08/2022. Estimated weight: 3540 grams, +/- 531 grams, 96.8 percentile. US/OB Limited With Biometrics IMPRESSION: Single live intrauterine gestation with a mean gestational age of 36 weeks and 1 day. The measurements obtained today fall within the normal expected range. Electronically Signed: Dontae Sanchez MD at 9:46 EDT ,
== END | disposition home or self-care (01) ==
LOC: OPUS 12:21
PROVIDERS: Visit Provider Obstetrics & Gynecology
DX: O09.299 Supervision of pregnancy with other poor reproductive or obstetric history, unspecified trimester (principal); Z3A.36 36 weeks gestation of pregnancy
CPT/HCPCS: 76816

== ENCOUNTER 2022-01-28 10:51 | Outpatient (CLI) | payer OTHER, SELFPAY | END 2022-01-28 23:59 | disposition home or self-care (01) | LOC: LABSPEC 10:52 | PROVIDERS: Referring Provider Obstetrics & Gynecology; Visit Provider Obstetrics & Gynecology | DX: Z34.93 Encounter for supervision of normal pregnancy, unspecified, third trimester (principal) | CPT/HCPCS: 87081 ==

== ENCOUNTER → 2022-02-07 | Outpatient (CLI) | payer OTHER, SELFPAY ==
[2022-02-07 10:51] LABS: Glucose GTT-Gestation. Fasting 78 mg/dL (<105)
[2022-02-07 11:58] LABS: Glucose GTT-Gestational 1 Hr 148 mg/dL (<190)
[2022-02-07 13:59] LABS: Glucose GTT-Gestational 3 Hr 111 L (<145)
[2022-02-07 14:01] LABS: Glucose GTT-Gestational 2 Hr 103 mg/dL (<165)
== END | disposition home or self-care (01) ==
LOC: LAB 09:53
PROVIDERS: Referring Provider Obstetrics & Gynecology; Visit Provider Obstetrics & Gynecology
DX: Z13.1 Encounter for screening for diabetes mellitus (principal)
CPT/HCPCS: 36415; 82951; 82952

== ENCOUNTER 2022-02-09 09:00 | Inpatient (IN) | payer OTHER, SELFPAY ==
[2022-02-09] VITALS (43 sets, daily range): BP systolic 94–194; BP diastolic 54–121; PULSE 71–102; RESP 16; TEMP 35.6–36.9; O2SAT 96–99; BMI 42.2
[2022-02-09] MEDS: Lactated Ringers 1,000 ML 50 ML IV (09:16)
[2022-02-09 10:02] LABS: Absolute Lymphocyte Count 1.07 X10^3/uL (0.83-4.51); Absolute Neutrophil Count 8.4 X10^3/uL (2.0-7.7); Basophil# 0.02 X10^3/uL; Basophil% 0.2 % (0-1); Eosinophil# 0.08 X10^3/uL; Eosinophils% 0.8 % (0-5); Hematocrit 33.8 % (37-47); Hemoglobin 10.8 g/dL (12.0-15.0); Lymphocyte # 1.07 X10^3/ul (0.83-4.51); Lymphocyte % 10.6 % (19-41); Mean Corpuscular Hgb 25.2 pg (27.0-32.0); Mean Platelet Vol. 10.3 fl (6.2-12.0); Monocyte# 0.49 X10^3/uL; Monocyte% 4.8 % (0-10); NRBC Flagged by Analyzer 0 % (0-5); Neutrophil % 83.1 % (47-70); Platelet Count 146 K/mm3 (150-450); RBC Distribution Width CV 16.5 % (11.6-14.6); RBC Distribution Width SD 46.4 fl (35.1-43.9); Red Blood Count 4.28 M/mm3 (4.2-5.4); White Blood Count 10.1 K/mm3 (4.4-11.0)
[2022-02-09] MEDS: LACTATED RINGERS 500 ML 999 ML IV (10:49)
[2022-02-09] MEDS: fentaNYL-bupivacaine (epidural) 100 ML BAG EPIDURAL ×2 (11:47→16:04)
[2022-02-09] MEDS: Oxytocin 30 units/NS 500 ml 30 UNITS/500 ML IV.SOLN IV (13:36)
--- NOTE | 2022-02-09 15:55 | HP.PCM.OB_ITS ---
HPI - General General Date of Admission: 02/09/22 HPI Narrative BERNABE DEMARCO, is a 31 F who presents IAL made change to 4 cm no vb lof good fm. Maternal Data Information RADAMES Calculator 2 Estimated Delivery Date Method Current WG Current Estimate 02/21/22 Ultrasound #1 38w 2d [facility] Medical History Asthma H/O acute pancreatitis (~2017) Home Medications prenat.vits,jordan,[id number] 1 tab PO DAILY 07/13/21 [History Last Taken 02/08/22 22:00] sertraline 50 mg tablet (Zoloft) 75 mg PO DAILY 30 days #45 tabs 12/01/21 [Rx Last Taken 02/08/22 22:00] Allergy/AdvReac Type Severity Reaction Status Date / Time No Known Allergies Allergy Verified 02/09/22 06:42 Surgical History H/O laparoscopy (~2017) History of cholecystectomy (~2017) Social History household members: family housing: house number of children: 1 current occupational status: employed 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 Date Name GA/Weeks Outcome Route Bth Weight Gen Labor Lgth Anesthesia Del Locatn Provider FOB Unknown 05/15/2017- Jett 41 live - full term 10l bs 3oz Female 4 hours none [facility] 11/03/20 Valentino (passed on 11/05) 39 live - full term Female [facility] Maritza Delivery Date: Last Updated by: Ananbelle Colbert 4th laceration Delivery Date: 11/03/20 Last Updated by: Shawna Townsend IOL for complex cardiac anomaly. Baby survived 2 days after delivery and passed on the afternoon of 11/05 Visit Details Expected Delivery Route/Plan discussed IOL by 39 due to history of 4th degree laceration Labor Preferences labor support person: labor intervention preferences: DO NOT DELIVER IN ROOM 21 pain management options preferred: [] cut cord/dad catch: [] : [] PP control planned: [] discussed possible routes of delivery and associated risks: [] special requests: [] Plans Covid status: vaccinated Flu vaccine: discussed Tdap vaccine: given Rhogam: na LARC form signed: declined movement and labor precautions reviewed. Problem list reviewed and updated with the most current plan of care details and appropriate orders placed. Relevant counseling for the gestational age provided. Continue routine care and follow up unless otherwise noted in visit notes/problem list details OB Flowsheet Initial Weight: 265 lb Date -?-?-?-?-?-?-?-?-?-?-?-?- EGA Weight BP Urine Prot -?-?-?-?-?-?-?-?-?-?-?-?- Glucose FHR FuHt Pres Dilation -?-?-?-?-?-?-?-?-?-?-?-?- Effaced St Visit Note 07/22/21 -?-?-?-?-?-?-?-?-?-?-?-?- 9w 3d 264 lb 4 oz (-12 oz) 120/86 -?-?-?-?-?-?-?-?-?-?-?-?- 170 -?-?-?-?-?-?-?-?-?-?-?-?- JV- pt had a selma ing ultrasound with the hospital at 7 weeks that was consistent with LMP 08/23/21 -?-?-?-?-?-?-?-?-?-?-?-?- 14w 0d 259 lb (-6 lb) 120/88 Negative -?-?-?-?-?-?-?-?-?-?-?-?- Negative 160 -?-?-?-?-?-?-?-?-?-?-?-?- SM- no vb radha mcnair. discussed anxiety and depression symptoms encouraged counseling and restarting zoloft. 08/31/21 -?-?-?-?-?-?-?-?-?-?-?-?- 15w 1d 253 lb (-12 lb) 128/90 Negative -?-?-?-?-?-?-?-?-?-?-?-?- Negative 150 -?-?-?-?-?-?-?-?-?-?-?-?- SM- co spotting yestereday, nause and upper abdominal pain, lower cramping and diarrhea. labs and urine culture sent to evaluate, discussed OTC meds 09/22/21 -?-?-?-?-?-?-?-?-?-?-?-?- 18w 2d 258 lb 8 oz (-6 lb 8 oz) 110/64 Negative -?-?-?-?-?-?-?-?-?-?-?-?- Negative 149 -?-?-?-?-?-?-?-?-?-?-?-?- Mh-No Vb, LOF. F eeling flutters. More anxiety. Had MFM anatomy US 09/27. Fear of heart defect like last child. Some difficulty sleeping Has Rx zoloft. Does not want to take any medication. Will call if needs other support intervention. Just feels will be better after Monday. 10/20/21 -?-?-?-?-?-?-?-?-?-?-?-?- 22w 2d 260 lb 6 oz (-4 lb 10 oz) 117/78 Negative -?-?-?-?-?-?-?-?-?-?-?-?- Negative 145 -?-?-?-?-?-?-?-?-?-?-?-?- JV- no lof, vagi nal bleeding or dec fm. Has echo next week 11/19/21 -?-?-?-?-?-?-?-?-?-?-?-?- 26w 4d 267 lb (+2 lb) 104/66 Negative -?-?-?-?-?-?-?-?-?-?-?-?- Negative 135 26 -?-?-?-?-?-?-?-?-?-?-?-?- SM- no vb lof go od fm nor egular ctx nl echo 12/01/21 -?-?-?-?-?-?--?-?-?-?-?-?- 28w 2d 270 lb 6 oz (+5 lb 6 oz) 120/86 Negative -?-?-?-?-?-?-?-?-?-?-?-?- Negative 144 30 -?-?-?-?-?-?-?-?-?-?-?-?- JV- pt wants to try to increase zoloft. 75mg rx sent to pharmacy. no lof, vaginal bleeding, or dec fm. 12/17/21 -?-?-?-?-?-?-?-?-?-?-?-?- 30w 4d 273 lb (+8 lb) 138/86 Negative -?-?-?-?-?-?-?-?-?-?-?-?- Negative 140 32 -?-?-?-?-?-?-?-?-?-?-?-?- Sm- no vb lof go od fm no regular ctx doing well mood pink. tdap today 12/31/21 -?-?-?-?-?-?-?-?-?-?-?-?- 32w 4d 278 lb 2 oz (+13 lb 2 oz) 120/88 Negative -?-?-?-?-?-?-?-?-?-?-?-?- Negative 134 33 -?-?-?-?-?-?-?-?-?-?-?-?- JV- [facility] signed, tdap today. plan 36 week growth ultrasound. 01/14/22 -?-?-?-?-?-?-?-?-?-?-?-?- 34w 4d 284 lb 4 oz (+19 lb 4 oz) 134/76 Negative -?-?-?-?-?-?-?-?-?-?-?-?- Negative 145 35 -?-?-?-?-?-?-?-?-?-?-?-?- SM- no vb lof go od fm no regular ctx. 01/28/22 -?-?-?-?-?-?-?-?-?-?-?-?- 36w 4d 291 lb 4 oz (+26 lb 4 oz) 136/80 Trace -?-?-?-?-?-?-?-?-?-?-?-?- Negative 145 37 Cephalic 1 -?-?-?-?-?-?-?-?-?-?-?-?- SM- no vb lof go od fm no regular ctx 02/04/22 -?-?-?-?-?-?-?-?-?-?-?-?- 37w 4d 291 lb 4 oz (+26 lb 4 oz) 134/82 Negative -?-?-?-?-?-?-?-?-?-?-?-?- Negative 140 Cephalic 3 -?-?-?-?-?-?-?-?-?-?-?-?- 50 -3 JV- nst re active. labor precautions discussed. GBS is negtive. 02/09/22 -?-?-?-?-?-?-?-?-?-?-?-?- 38w 2d 294 lb 6.4 oz (+29 lb 6.4 oz) 130/73 126/83 133/94 142/90 146/91 153/82 139/75 114/69 116/68 111/66 113/62 107/55 115/57 114/62 110/60 118/70 111/67 -?-?-?-?-?-?-?-?-?-?-?-?- -?-?-?-?-?-?-?-?-?-?-?--?- NST FHR Rate Baby A Baseline: 140 Variability:: Moderate Accelerations:: 15 x 15 Decelerations:: None NST Reactive:: Yes FHR Category:: Category I Uterine Activity:: q3-5 ROS Constitutional Constitutional: Reports systems reviewed and no addt'l complaints, except as documented ENT HEENT: Reports systems reviewed and no addt'l complaints, except as documented Cardiovascular Cardiovascular: Reports systems reviewed and no addt'l complaints, except as documented Respiratory/Chest Respiratory/Chest: Reports systems reviewed and no addt'l complaints, except as documented Gastrointestinal Gastrointestinal: Reports systems reviewed and no addt'l complaints, except as documented and nausea; Denies abdominal pain Genitourinary Genitourinary: Reports systems reviewed and no addt'l complaints, except as documented, contractions Details: present and frequency (regular ) and movement Details: present Musculoskeletal Musculoskeletal: Reports systems reviewed and no addt'l complaints, except as documented Integumentary Integumentary: Reports as per HPI Neurologic Neurologic: Reports systems reviewed and no addt'l complaints, except as documented Endocrine Endocrinology: Reports systems reviewed and no addt'l complaints, except as documented Vital Signs Vital Signs Vital Signs: 02/09/22 06:39 02/09/22 06:39 02/09/22 06:39 Temperature 98.1 F Temperature Source Pulse Rate 96 Blood Pressure BP Systolic BP Diastolic Pulse Ox 97 02/09/22 06:39 02/09/22 06:41 02/09/22 06:41 Temperature Temperature Source Temporal Pulse Rate 88 Blood Pressure 130/73 H BP Systolic 130 BP Diastolic 73 Pulse Ox 02/09/22 10:06 02/09/22 10:06 02/09/22 10:06 Temperature 98.4 F Temperature Source Pulse Rate 84 Blood Pressure 126/83 H BP Systolic 126 BP Diastolic 83 Pulse Ox 02/09/22 11:12 02/09/22 11:12 02/09/22 11:13 Temperature Temperature Source Pulse Rate 102 H 86 Blood Pressure 133/94 H BP Systolic 133 BP Diastolic 94 Pulse Ox 02/09/22 11:13 02/09/22 11:18 02/09/22 11:18 Temperature Temperature Source Pulse Rate 86 Blood Pressure 142/90 H BP Systolic 142 BP Diastolic 90 Pulse Ox 99 02/09/22 11:18 02/09/22 11:22 02/09/22 11:22 Temperature Temperature Source Pulse Rate 100 Blood Pressure 146/91 H BP Systolic 146 BP Diastolic 91 Pulse Ox 99 02/09/22 11:23 02/09/22 11:23 02/09/22 11:23 Temperature Temperature Source Pulse Rate 102 H Blood Pressure 153/82 H BP Systolic 153 BP Diastolic 82 Pulse Ox 99 02/09/22 11:27 02/09/22 11:27 02/09/22 11:28 Temperature Temperature Source Pulse Rate 92 79 Blood Pressure 139/75 H BP Systolic 139 BP Diastolic 75 Pulse Ox 08/10/22 11:28 02/09/22 11:33 02/09/22 11:33 Temperature Temperature Source Pulse Rate 79 Blood Pressure BP Systolic BP Diastolic Pulse Ox 97 98 02/09/22 11:39 02/09/22 11:39 02/09/22 11:38 Temperature Temperature Source Pulse Rate 89 Blood Pressure 114/69 BP Systolic 114 BP Diastolic 69 Pulse Ox 97 02/09/22 11:43 02/09/22 11:43 02/09/22 11:44 Temperature Temperature Source Pulse Rate 85 Blood Pressure 116/68 BP Systolic 116 BP Diastolic 68 Pulse Ox 98 02/09/22 11:44 02/09/22 11:47 02/09/22 11:47 Temperature Temperature Source Pulse Rate 83 89 Blood Pressure 111/66 BP Systolic 111 BP Diastolic 66 Pulse Ox 02/09/22 11:48 02/09/22 11:48 02/09/22 11:48 Temperature Temperature Source Pulse Rate 90 Blood Pressure 113/62 BP Systolic 113 BP Diastolic 62 Pulse Ox 96 02/09/22 11:52 02/09/22 11:52 02/09/22 11:53 Temperature Temperature Source Pulse Rate 88 98 Blood Pressure 107/55 L BP Systolic 107 BP Diastolic 55 Pulse Ox 02/09/22 11:53 02/09/22 11:59 02/09/22 11:59 Temperature Temperature Source Pulse Rate 79 Blood Pressure 115/57 L BP Systolic 115 BP Diastolic 57 Pulse Ox 98 02/09/22 11:58 02/09/22 12:03 02/09/22 12:03 Temperature Temperature Source Pulse Rate 89 Blood Pressure 114/62 BP Systolic 114 BP Diastolic 62 Pulse Ox 98 02/09/22 12:03 02/09/22 12:55 02/09/22 12:55 Temperature Temperature Source Pulse Rate 71 Blood Pressure BP Systolic BP Diastolic Pulse Ox 99 98 02/09/22 13:00 02/09/22 13:00 02/09/22 13:31 Temperature Temperature Source Pulse Rate 87 Blood Pressure 110/60 BP Systolic 110 BP Diastolic 60 Pulse Ox 99 02/09/22 13:31 02/09/22 14:25 02/09/22 14:25 Temperature 97.5 F L Temperature Source Temporal Pulse Rate 72 Blood Pressure BP Systolic BP Diastolic Pulse Ox 02/09/22 14:25 02/09/22 14:25 02/09/22 14:25 Temperature Temperature Source Pulse Rate 78 Blood Pressure 118/70 BP Systolic 118 BP Diastolic 70 Pulse Ox 98 02/09/22 14:25 02/09/22 15:05 02/09/22 15:05 Temperature 97.6 F L Temperature Source Pulse Rate 84 Blood Pressure 111/67 BP Systolic 111 BP Diastolic 67 Pulse Ox 02/09/22 15:04 Temperature Temperature Source Pulse Rate Blood Pressure BP Systolic BP Diastolic Pulse Ox 98 Weight Weight: 294 lb 6.4 oz Body Mass Index (BMI) 42.2 Physical Exam Const alert, oriented x3 and healthy appearing Constitutional Narrative: uncomfortable with contractions HEENT normocephalic and moist oral mucous membranes Head and Scalp: atraumatic Neck full ROM, no lymphadenopathy, supple and thyroid normal General: trachea midline Thyroid: thyroid normal Lymph Lymphatic: no lymphadenopathy noted Chest inspection of chest normal Resp normal respiratory effort Cardio regular rate GI normal to inspection, nondistended, normoactive bowel sounds, soft to palpation and non-tender Inspection: gravid external exam normal Bimanual Exam - Vag & Uterus: uterus non-tender Manual OB Exam: estimated gestational size appropriate, presentation cephalic, dilated, effaced and station Extremity normal to inspection General Extremity: Negative for edema Skin no rashes or lesions noted Neuro deep tendon reflexes 2+ bilaterally Motor Exam: strength 5/5 throughout and clonus absent Psych mental status grossly normal Labs Labs Labs: Blood Type A POSITIVE Antibody Screen NEGATIVE Hct 33.8 % (37-47) L Hgb 10.8 g/dL (12.0-15.0) L Pap Smear Negative Obstetrics US Syphilis Total Ab Non-reactive Rubella IgG Antibody Reactive (Nonreactive) Hep Bs Antigen Non-Reactive (Nonreactive) Chlamydia DNA (BETHANY) Negative (Negative) Neisseria gonorrhoeae DNA (BETHANY) Negative (Negative) HIV 1&2 Antibody Non-Reactive (Nonreactive) Glucose 1 Hr 50 gm 132 mg/dL (70-140) Miscellaneous Test Assessment & Plan (1) Macrosomia: COMMENT: 96%ile plan 39 week delivery, repeat 3 hr gct (2) Polyhydramnios: COMMENT: weekly nsts until deliveyr, deliver at 39. repeat 3 hr gct (3) Family history of congenital heart defect: COMMENT: previous child with AV truncal defect shortly after . echo/growth normal (4) Obesity affecting : QUALIFIERS: Trimester: second trimester Qualified Code(s): O99.212 - Obesity complicating , second trimester COMMENT: early glucola ordered failed 1 hr, needs 3 hr gtt, nl 3 hr GTT (5) Depression: QUALIFIERS: Depression Type: reactive depression Qualified Code(s): F32.9 - Major depressive disorder, single episode, unspecified COMMENT: on Zoloft- started 10/20/21 was on after loss of Valentino. (6) Supervision of high risk , antepartum: COMMENT: PRR RADAMES 02/21/22 Boy Jatinder PC: Valentino Frausto(dec) Spouse:Moose (7) : QUALIFIERS: Weeks of gestation: 37 weeks Qualified Code(s): Z3A.37 - 37 weeks gestation of COMMENT: GBS neg. anatomy nl, NIPT low risk. Collect another urine culture (8) Hx of maternal laceration, 4th degree, currently : COMMENT: with first, not with second. 3# difference. Had fast labor and fe lt was very tense during delivery. No lasting pain or incontinence. Offered PCD. Likely planning 39w IOL after 36w growth. PLAN: Plan Patient presents IAL, plan expectant management for , pitocin/AROM PRN if needed. Pain management: plans epidural. GBS neg. Management of any complications: none I have reviewed the [facility] and made any clinically relevant updates.
[2022-02-09] MEDS: Oxytocin 30 units/NS 500 ml 30 UNITS/500 ML IV.SOLN 334 UNITS IV (17:25)
--- NOTE | 2022-02-09 17:37 | DCINST_ITS ---
Discharge Instructions Diet Discharge Diet: No restrictions Activity Discharge Activity: Return to Normal Activity, May Drive, May Shower and May Take a Tub Bath (in 4 weeks) May resume sexual activity in: 6-8 weeks (after seen by OB provider) Weight Bearing Status: Full weight bearing Lifting Restrictions: none Dressing / Incision Call your doctor if you observe: Fever of 101 or Higher, Inability to urinate, Using more than 1 pad per hour (for more than 2 hours in a row or more), Shortness of breath, Dizziness, Chest pain and - (headache not controlled with tylenol, change in vision) Follow Up Care When: in 6 weeks for visit, call the office to make the appointment. If you had elevated blood pressures call the office to be seen within 1 week. Test Results: Test results from this visit will be discussed in further detail at your follow- up appointment, if applicable. Discharge Plan Admission Admit Date/Time: 02/09/22 09:00 Attending Provider: Angelica Chakraborty Primary Care Provider: Care Physician,Lakisha Primary Discharge Orders/Prescriptions Prescriptions: No Action prenat.vits,jordan,[id number] Tablet 1 tab PO DAILY sertraline [Zoloft] 50 mg tablet 75 mg PO DAILY 30 Days Qty: 45 12RF Referrals / Follow Up: Care Physician,No Primary [Primary Care Provider] -
--- NOTE | 2022-02-09 17:37 | OP.PCM_ITS ---
Maternal Data Information RADAMES Calculator Estimated Delivery Date Method Current Current Estimate 02/21/22 Ultrasound #1 38w 4d Vaginal Delivery Operative Information Pre-Operative Diagnosis: IAL Post-Operative Diagnosis: same Surgery / Procedure Performed: Spontaneous Vaginal Delivery Type of Anesthesia: Epidural Special Medications: none Estimated Blood Loss: 300 Fluids Replaced: crystalloid Findings Description of Procedure: Patient began pushing and delivered the head in the MICHAEL presentation. The head was delivered atraumatically . The anterior and posterior shoulders delivered without complication followed by the rest of the and the infant was placed on the maternal abdomen. Delayed cord clamping was employed for approximately 60 seconds. Cord was clamped and cut and gentle traction was milton lied to the cord and the placenta delivered spontaneously immediately following it was noted to be intact with three-vessel cord. The perineum and vagina were inspected and noted to have a first degree laceration repaired in the usual fashion without complication. EBL was 300. Patient and tolerated delivery well. Presentation: MICHAEL Amniotic Membrane Rupture Type: Artificial Amniotic Fluid Description: Clear Placental Delivery Description: Spontaneous Placenta Disposition: [facility] Cord Vessel Description: 3 Vessels Cord Entanglement: None Delayed Cord Clamping: Yes Post Vaginal Delivery Medications Given After Delivery: IV Pitocin Episiotomy Description: None Laceration: Perineal Extension/lac and 1st degree Complication Complications: None Procedures Urinary/Genital [id number]: [id number] Vaginal Delivery [facility]
[2022-02-09] MEDS: Naproxen 500 MG Tablet PO (18:45)
[2022-02-09] MEDS: Acetaminophen 500 MG Tablet 1000 MG PO (23:35)
[2022-02-10 03:15] VITALS: BP 126/69; PULSE 86; RESP 18; TEMP 36.4
[2022-02-10] MEDS: Naproxen 500 MG Tablet PO (06:20)
--- NOTE | 2022-02-10 07:59 | PCM.PN.OB ---
Subjective Subjective Patient doing well without complaints. Tolerating PO. Ambulating and voiding without difficulty. Feeding well. Denies chest pain, shortness of breath, calf pain/swelling, fevers, chills, lightheadedness. Objective Data Objective Data Vital Signs: Vital Signs Temp Pulse Resp BP Pulse Ox O2 Del Method 97.6 F L 86 18 126/69 H 98 Room Air 02/10/22 03:15 02/10/22 03:15 02/10/22 03:15 02/10/22 03:15 02/09/22 15:04 02/10/22 03:15 Oxygen Delivery Method Room Air Weight: 294 lb 6.4 oz Body Mass Index (BMI) 42.2 Intake & Output: Intake and Output for Last 24 Hours 02/08/22 02/09/22 02/10/22 23:59 23:59 23:59 Intake Total 2424.87 / 2424.87 Output Total 800 / 800 1000 / 1000 Balance 1624.87 / 1624.87 -1000 / -1000 Lab / Micro Data Result Diagrams: 02/09/22 09:50 Labs: Laboratory Results - last 24 hr 02/09/22 09:50: WBC 10.1, RBC 4.28, Hgb 10.8 L, Hct 33.8 L, MCV 79.0 L, MCH 25.2 L, MCHC 32.0, RDW Std Deviation 46.4 H, RDW Coeff of Diane 16.5 H, Plt Count 146 L, MPV 10.3, Immature Gran % (Auto) 0.500, Neut % (Auto) 83.1 H, Lymph % (Auto) 10.6 L, [place] % (Auto) 4.8, Eos % (Auto) 0.8, Baso % (Auto) 0.2, Absolute Neuts (auto) 8.4 H, Absolute Lymphs (auto) 1.07, Nucleated RBC % 0 02/09/22 09:50: Blood Type A POSITIVE, Antibody Screen NEGATIVE Physical Exam Const alert and oriented x3 HEENT normocephalic Eyes PERRL Neck full ROM Resp normal respiratory effort GI soft to palpation GI Narrative: FF below U Assessment & Plan (1) Vaginal delivery: COMMENT: 02/09 HIRAM Tobias (2) Depression: QUALIFIERS: Depression Type: reactive depression Qualified Code(s): F32.9 - Major depressive disorder, single episode, unspecified COMMENT: on Zoloft- started 10/20/21 was on after loss of Valentino. PLAN: Plan s/p PPD # 1 1. routine post delivery care 2. breast feeding- support given 3. rh positive 4. rubella immune 5. Cont zoloft 6. home today
[2022-02-10 08:40] VITALS: BP 126/74; PULSE 96; RESP 16; TEMP 36.3; O2SAT 96
[2022-02-10] MEDS: Sertraline 50 MG Tablet 75 MG PO (10:17)
[2022-02-10 11:45] VITALS: BP 122/75; PULSE 89; RESP 16; TEMP 36.4
--- NOTE | 2022-02-10 14:10 | CASEMGMT ---
Social Work Assessment Labor and Delivery Unit Patient Address: [address] [address], [place] [id number] Phone number: [phone] Date of Referral: 02.10.2022 Time of Referral: 732 Referred By: Dr. Chakraborty Date of Intervention: 02.10.2022 Time of Intervention: 1400 Reason for Referral: Depression, history of loss History obtained from: Medical records and mother of baby (MOB) Romero Benavides; father of baby (FOB) Moose Benavides present for most of conversation. Household composition: MOB, FOB, and oldest daughter in a home. Home situation is safe and adequate. Patient's parent/guardian status: ZAIDA is a 31 year female, to the FOB. Privately MOB denies any abuse or safety concerns in the relationship with FOB. MOB and FOB now have 3 children, 2 are living. Children include: Jett (born 05.15.2017), Valentino (born [birth year]21, .. due to complications AV Canal Defect), and baby boy Jatinder Benavides (born 02/09/2022). Medical History: ZAIDA is 4, para 2 now 4 with 2 living children and 1 . care for this delivery with Jatinder started at 9 weeks and regular thereafter. Delivery at 38 weeks gestation. 7 and 9 at 1 and 5 minutes of life respectively. weight 8 pounds 12 ounces. 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 No concerns with reading, writing, or learning comprehension. 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 No reported concerns with finances. Supplies: No reported concerns with supplies. Reports to have car seat, bassinet, and all other necessary supplies to get started. Childcare/Caregiver(s): MOB and FOB. Transportation: Both parents drive. No concerns. Programs/Agencies Involved: No agency involvement. Children Services/Legal Issues: None reported. Behavioral Health Issues: Mental Health History: ZAIDA with a history of depression after first child was born. Reports history of depression and grief after her second daughter was born. ZAIDA endorses history of thoughts of suicide shortly after going home after Valentino and then again around 6 weeks . ZAIDA denies that she ever started planning, nor had intent, nor took any action. MOB reports she spoke with the FOB about her thoughts and feelings, got on medication, and did start counseling. MOB reports she went to a counseling agency [facility] in [place], and although not currently attending counseling would return back to the same agency should need arise again in the future.. MOB reports has been on Zoloft and plans to remain on Zoloft in this timeframe. [place] depression screen completed with a score of 10. No indication of thoughts of suicide, and none reported being present since that initial timeframe with her second daughter. Substance Use History: MOB denies any substance use history or concerns. Family History: MOB reports there is a family history of depression and anxiety. Denies any history of suicide, bipolar, or schizophrenia in her family. Drug Screens: Maternal drug screen negative on 07/22/2021. Family/Social Stressors: Grief related to loss in October 2020. Closely spaced pregnancies, and admitted anxiety during this related to fear that something could be wrong with this baby. Support Systems: MOB reports the FOB is a strong support, very helpful, and helps MOB work through things. Additional support from MOB's parents and FOB's mother who lives locally. Depression/Shaken Baby/Safe Sleeping: Information provided. ASSESSMENT: Met with MOB and FOB together, introducing to self and social work role. Educated for need to complete depression screening and at that point would meet with MOB one-on-one. Both MOB and FOB agreeable. FOB present for most of visit however. MOB and FOB report to have all necessary supplies to care for the baby, the FOB will be off of work for a week to help with the transition home, and no concerns with meeting basic needs. Explored how MOB and FOB have been doing over this last year since the loss of their daughter. Emotional support and reflection provided. Educated to mood and anxiety disorders and importance of self-care should symptoms arise and/or become distressing. During private conversation with the MOB, MOB denied any type of safety concerns in the home and talked a little bit more about her emotions. MOB appropriately tearful. MOB attended to the baby during social work visit, was appropriate and gentle, appearing to be bonding. There have been no voiced concerns regarding parent-child interactions or bonding. Emotional support provided to the MOB, validation and encouragement. Provided packet on mood and anxiety disorders that includes resources for home-going. MOB expressed appreciation for the care received at this hospital, and admitted that it was hard to come back here and deliver but is happy with the experience and with the care provided. PLAN: MOB and will discharge home when ready. mood and anxiety disorder information provided. No other services requested or indicated. -JYOTI Hayden, RIO *This note was generated with [employer] dictation software. It may contain incorrect words, spelling, and punctuation that were not noted in review of the chart prior to signing*
[2022-02-10 16:45] VITALS: BP 128/72; PULSE 80; RESP 20; TEMP 36.2
== END 2022-02-10 17:30 | disposition home or self-care (01) | DRG 807 ==
LOC: WPOUT 09:08 → WP 09:08
PROVIDERS: Admitting Provider Obstetrics & Gynecology; Visit Provider Obstetrics & Gynecology
DX: O40.3XX0 Polyhydramnios, third trimester, not applicable or unspecified (principal); Z37.0 Single live birth; O99.344 Other mental disorders complicating childbirth; F32.A Depression, unspecified; J45.909 Unspecified asthma, uncomplicated; O99.214 Obesity complicating childbirth; O99.52 Diseases of the respiratory system complicating childbirth; Z79.899 Other long term (current) drug therapy; Z3A.38 38 weeks gestation of pregnancy; Z82.79 Family history of other congenital malformations, deformations and chromosomal abnormalities; Z87.19 Personal history of other diseases of the digestive system; O70.0 First degree perineal laceration during delivery
CPT/HCPCS: 59050; 85025; 86850; 86900; 86901; 99218; J7120; G0378